=== PATIENT | female | born 1975 | race Caucasian/White ===

== ENCOUNTER 2017-04-07 17:02 | Emergency (ER) | payer OTHER ==
[2017-04-07] MEDS ORDERED: Sodium Chloride 0.9% 10 ML Syringe FLUSH PRN (17:38)
[2017-04-07] MEDS ORDERED: diphenhydrAMINE 50 MG/ML SDV IVPUSH ONE (17:39)
[2017-04-07] MEDS ORDERED: Prochlorperazine 10 MG/2 ML SDV IVPUSH ONE (17:39)
[2017-04-07] MEDS ORDERED: Ketorolac 30 MG/ML SDV IVPUSH ONE (17:39)
[2017-04-07] MEDS ORDERED: Sodium Chloride 0.9% 1,000 ML IV SCH (17:45)
--- NOTE | 2017-04-07 18:54 | CT ---
Head CT Technique: Multiple axial sections through the brain were obtained. Intravenous contrast was not utilized. Comparison: No previous intracranial imaging is available. Findings: Ventricles along with basal cisterns and sulci over convexities are within normal limits for the patient's age. No abnormal parenchymal densities are seen. No evidence of intracranial hemorrhage. No midline shift or mass effect is seen. Bone window settings were reviewed which shows no acute calvarial abnormality. Visualized sinuses are clear. Impression: 1. Nothing acute is identified on noncontrast head CT study. Diagnostic code #1
--- NOTE | 2017-04-07 19:27 | EDM.PDOC ---
ED HPI GENERAL MEDICAL PROBLEM - General Chief Complaint: Headache Stated Complaint: HEAD PAIN Time Seen by Provider: 04/07/17 17:24 Source of Information: Reports: Patient History Limitations: Reports: No Limitations - History of Present Illness INITIAL COMMENTS - FREE TEXT/NARRATIVE: The patient presents with a headache for a few days. She also had a fever a couple days ago and now a cough, congestion and runny nose. She has no numbness or weakness. She has no blurred or double vision. She has no abdominal pain, nausea or vomiting. She has a history of headache but not like this. Onset: Gradual Duration: Day(s): Location: Reports: Head Quality: Reports: Ache Severity: Severe Improves with: Reports: None Worsens with: Reports: None Associated Symptoms: Reports: Cough, Fever/Chills. Denies: Confusion, Chest Pain, Nausea/Vomiting, Shortness of Breath Headache Pain Score (Numeric/FACES): 10 - Related Data Allergies Allergy/AdvReac Type Severity Reaction Status Date / Time No Known Allergies Allergy Verified 04/07/17 17:21 Home Meds: Home Meds Codeine/Promethazine [Phenergan with Codeine] 5 - 10 ml PO Q6HR PRN #300 ml [Rx] Past Medical History - Past Health History Medical/Surgical History: Denies Medical/Surgical History Social & Family History - Tobacco Use Smoking Status *Q: Never Smoker ED ROS GENERAL - Review of Systems Review Of Systems: See Below Constitutional: Reports: Fever, Chills HEENT: Reports: Other (Congestion and runny nose) Respiratory: Reports: No Symptoms Cardiovascular: Reports: No Symptoms Endocrine: Reports: No Symptoms GI/Abdominal: Reports: No Symptoms : Reports: No Symptoms Musculoskeletal: Reports: Neck Pain Skin: Reports: No Symptoms Neurological: Reports: Headache - Physical Exam Exam: See Below Exam Limited By: No Limitations General Appearance: Alert, No Apparent Distress Eye Exam: Bilateral Eye: EOMI, PERRL Ears: Normal External Exam Nose: Normal Inspection Throat/Mouth: Normal Inspection Head Exam: Atraumatic, Normocephalic Neck: Normal Inspection Respiratory/Chest: No Respiratory Distress, Lungs Clear, Normal Breath Sounds Cardiovascular: Regular Rate, Rhythm, No Edema, No Murmur GI/Abdominal: Soft, Non-Tender, No Organomegaly, No Mass Neuro Exam (Abbreviated): Alert, Oriented, No Motor/Sensory Deficits Back Exam: Normal Inspection Extremities: Normal Inspection Course - Vital Signs Last Recorded V/S: Last Vital Signs Temp 98.2 F 04/07/17 17:22 Pulse 87 04/07/17 17:22 Resp 16 04/07/17 17:22 BP 119/84 04/07/17 17:22 Pulse Ox 98 04/07/17 17:22 - Orders/Labs/Meds Orders: Active Orders 24 hr Category Date Time Status Peripheral IV Care [RC] . DIRECTED Care 04/07/17 17:38 Active Chest 2V [CR] Stat Exams 04/07/17 17:38 Taken Sodium Chloride 0.9% [Normal Saline] 1,000 ml Med 04/07/17 17:45 Active IV ASDIRECTED Sodium Chloride 0.9% [Saline Flush] Med 04/07/17 17:38 Active 10 ml FLUSH ASDIRECTED PRN ED Antiemetic Medication Reflex [OM.PC] Stat Oth 04/07/17 17:38 Ordered Peripheral IV Insertion Adult [OM.PC] Stat Oth 04/07/17 17:38 Ordered Medication Orders Sodium Chloride (Normal Saline) 1,000 mls @ 125 mls/hr IV ASDIRECTED AUGUST Last Admin: 04/07/17 18:00 Dose: 125 mls/hr Sodium Chloride (Saline Flush) 10 ml FLUSH ASDIRECTED PRN PRN Reason: Keep Vein Open Last Admin: 04/07/17 18:02 Dose: 10 ml Labs: Laboratory Tests 04/07/17 04/07/17 Range/Units 17:00 17:00 WBC 4.30 (3.98-10.04) K/mm3 RBC 4.86 (3.98-5.22) M/mm3 Hgb 14.2 (11.2-15.7) gm/L Hct 42.6 (34.1-44.9) % MCV 87.7 (79.4-94.8) fl MCH 29.2 (25.6-32.2) pg MCHC 33.3 (32.2-35.5) g/dl RDW Std Deviation 44.5 (36.4-46.3) fL Plt Count 360 (182-369) K/mm3 MPV 8.9 L (9.4-12.3) fl Neut % (Auto) 48.4 (34.0-71.1) % Lymph % (Auto) 38.1 (19.3-51.7) % [place] % (Auto) 12.8 H (4.7-12.5) % Eos % (Auto) 0.2 L (0.7-5.8) Baso % (Auto) 0.5 (0.1-1.2) % Neut # (Auto) 2.08 (1.56-6.13) K/mm3 Lymph # (Auto) 1.64 (1.18-3.74) K/mm3 [place] # (Auto) 0.55 H (0.24-0.36) K/mm3 Eos # (Auto) 0.01 L (0.04-0.36) K/mm3 Baso # (Auto) 0.02 (0.01-0.08) K/mm3 Sodium 139 (136-145) mEq/L Potassium 3.8 (3.5-5.1) mEq/L Chloride 102 (98-107) mEq/L Carbon Dioxide 26 (21-32) mEq/L Anion Gap 14.8 (5-15) BUN 7 (7-18) mg/dL Creatinine 0.9 (0.55-1.02) mg/dL Est Cr Clr Drug Dosing 76.23 mL/min Estimated GFR (MDRD) > 60 (>60) mL/min BUN/Creatinine Ratio 7.8 L (14-18) Glucose 81 (74-106) mg/dL Calcium 9.3 (8.5-10.1) mg/dL Total Bilirubin 0.2 (0.2-1.0) mg/dL AST 38 H (15-37) U/L ALT 33 (14-59) U/L Alkaline Phosphatase 52 (46-116) U/L Total Protein 8.1 (6.4-8.2) g/dl Albumin 3.8 (3.4-5.0) g/dl Globulin 4.3 gm/dL Albumin/Globulin Ratio 0.9 L (1-2) Meds: Medications Generic Name Dose Route Start Last Admin Trade Name Freq PRN Reason Stop Dose Admin Sodium Chloride 1,000 mls @ 125 mls/hr 04/07/17 17:45 04/07/17 18:00 Normal Saline IV 125 mls/hr ASDIRECTED AUGUST Administration Sodium Chloride 10 ml 04/07/17 17:38 04/07/17 18:02 Saline Flush FLUSH 10 ml ASDIRECTED PRN Administration Keep Vein Open Discontinued Medications Generic Name Dose Route Start Last Admin Trade Name Luis PRN Reason Stop Dose Admin Diphenhydramine HCl 50 mg 04/07/17 17:39 04/07/17 18:05 Benadryl IVPUSH 04/07/17 17:40 50 mg ONETIME ONE Administration Ketorolac Tromethamine 30 mg 04/07/17 17:39 04/07/17 18:06 Toradol IVPUSH 04/07/17 17:40 30 mg ONETIME ONE Administration Prochlorperazine Edisylate 10 mg 04/07/17 17:39 04/07/17 18:03 Compazine IVPUSH 04/07/17 17:40 10 mg ONETIME ONE Administration - Re-Assessments/Exams Free Text/Narrative Re-Assessment/Exam: 04/07/17 19:22 I ordered an IV NS, labs, CT of her head, compazine 10mg IV, toradol 30mg IV, and benadryl 50mg IV. Her CT shows nothing acute. 04/07/17 19:27 Her CBC and CMP looks good. Her headache is gone. I will discharge her home with something for her cough. Departure - Departure Time of Disposition: 19:30 Disposition: Home, Self-Care 01 Condition: Good Clinical Impression: Viral upper respiratory infection Headache Qualifiers: Headache type: unspecified Headache chronicity pattern: acute headache Intractability: not intractable Qualified Code(s): R51 - Headache - Discharge Information Prescriptions: Codeine/Promethazine [Phenergan with Codeine] 5 - 10 ml PO Q6HR PRN #300 ml PRN Reason: Cough Referrals: Gianna Patel, LEGAL ARCHIVIST [Primary Care Provider] - 1 Week Additional Instructions: Take the phenergan with codeine for the cough. Go home to a dark quiet room and rest. Please return if you are worse. - My Orders Last 24 Hours: My Active Orders 04/07/17 17:38 Peripheral IV Care [RC] . DIRECTED Chest 2V [CR] Stat Sodium Chloride 0.9% [Saline Flush] 10 ml FLUSH ASDIRECTED PRN ED Antiemetic Medication Reflex [OM.PC] Stat Peripheral IV Insertion Adult [OM.PC] Stat 04/07/17 17:45 Sodium Chloride 0.9% [Normal Saline] 1,000 ml IV ASDIRECTED - Assessment/Plan Last 24 Hours: My Active Orders 04/07/17 17:38 Peripheral IV Care [RC] . DIRECTED Chest 2V [CR] Stat Sodium Chloride 0.9% [Saline Flush] 10 ml FLUSH ASDIRECTED PRN ED Antiemetic Medication Reflex [OM.PC] Stat Peripheral IV Insertion Adult [OM.PC] Stat 04/07/17 17:45 Sodium Chloride 0.9% [Normal Saline] 1,000 ml IV ASDIRECTED
--- NOTE | 2017-04-08 10:08 | CR ---
Chest: Two views of the chest were obtained. Comparison: No prior study. Heart size and mediastinum are within normal limits. Lungs are clear. Mild scoliosis is present within the spine. Impression: 1. Incidental findings. Nothing acute is identified on two-view chest x-ray. Diagnostic code #1
== END 2017-04-07 19:40 | disposition home or self-care (01) ==
LOC: EDBD 17:02 → JD.ED 17:02
DX: J06.9 Acute upper respiratory infection, unspecified (principal); R51 Headache
CPT/HCPCS: 36415; 70450; 71020; 80053; 85025; 96361; 96374; 96375; 99284; J0780; J1200; J1885; J7040; J7050

== ENCOUNTER 2023-04-05 18:36 | Emergency (ER) | payer BC, OTHER | END 2023-04-05 22:19 | disposition home or self-care (01) | LOC: JD.ED 18:36 | DX: I83.92 Asymptomatic varicose veins of left lower extremity (principal) | CPT/HCPCS: 93971-26-LT; 93971-LT; 99282; 99283 ==

== ENCOUNTER 2024-06-24 09:09 | Emergency (ER) | payer OTHER ==
[2024-06-24] MEDS ORDERED: Sodium Chloride 0.9% 10 ML Syringe FLUSH PRN (09:14)
[2024-06-24 09:28] LABS: BASOPHILS PERCENT AUTO 0.3 % (0.0-1.0); EOSINOPHILS ABSOLUTE AUTO 0.1 K/mm3 (0.0-0.4); EOSINOPHILS PERCENT AUTO 0.8 % (0.0-6.0); HEMATOCRIT 40.3 % (37.0-47.0); HEMOGLOBIN 13.3 gm/dl (12.0-16.0); IMMATURE GRAN ABSOLUTE AUTO 0.04 K/mm3 (0.00-0.05); IMMATURE GRAN PERCENT AUTO 0.4 % (0.0-0.4); LYMPHOCYTES ABSOLUTE AUTO 3.1 K/mm3 (1.0-4.8); LYMPHOCYTES PERCENT AUTO 34.3 % (24.0-44.0); MEAN CORPUSCULAR HEMOGLOBIN 27.6 pg (28.0-32.0); MEAN CORPUSCULAR VOLUME 83.6 fl (83.0-99.0); MEAN PLATELET VOLUME 8.4 fl (9.4-12.3); MONOCYTES ABSOLUTE AUTO 0.6 K/mm3 (0.0-0.8); MONOCYTES PERCENT AUTO 6.7 % (0.0-8.0); NEUTROPHILS ABSOLUTE AUTO 5.2 K/mm3 (1.8-7.7); NEUTROPHILS PERCENT AUTO 57.5 % (41.0-71.0); PLATELET COUNT,PLT 438 K/mm3 (150-400); RED BLOOD CELL COUNT 4.82 M/mm3 (4.10-5.30); WHITE BLOOD CELL COUNT,WBC 9.09 K/mm3 (3.9-11.3)
[2024-06-24 09:50] LABS: A/G RATIO 0.9 (1-2); ALANINE AMINOTRANSFERASE,ALT 24 U/L (14-59); ALBUMIN 3.4 g/dl (3.4-5.0); ALKALINE PHOSPHATASE 54 U/L (46-116); ANION GAP 13.8 (5-15); ASPARTATE AMNIOTRANSFERASE,AST 18 U/L (15-37); BILIRUBIN TOTAL 0.4 mg/dL (0.2-1.0); BLOOD UREA NITROGEN,BUN 11 mg/dL (7-18); BUN/CREATININE RATIO 12.2 (14-18); CALCIUM 9.1 mg/dL (8.5-10.1); CARBON DIOXIDE,CO2 26 mEq/L (21-32); CHLORIDE,CL 102 mEq/L (98-107); CREATININE 0.9 mg/dL (0.55-1.02); ESTIMATED GFR 78 mL/min (>60); GLUCOSE RANDOM 129 mg/dL (70-99); LIPASE 44 U/L (16-77); POTASSIUM,K 3.8 mEq/L (3.5-5.1); PROTEIN TOTAL,TP 7.3 g/dl (6.4-8.2); SODIUM,NA 138 mEq/L (136-145)
[2024-06-24] MEDS ORDERED: Naloxone 0.4 MG/ML SDV IVPUSH PRN (11:46)
[2024-06-24 11:51] LABS: APPEARANCE,URINE CLEAR (Clear); BILIRUBIN,URINE NEGATIVE (Negative); COLOR,URINE YELLOW (Yellow); GLUCOSE,URINE NEGATIVE (Negative); KETONES,URINE NEGATIVE (Negative); LEUKOCYTE ESTERASE,URINE NEGATIVE (Negative); NITRITE,URINE NEGATIVE (Negative); OCCULT BLOOD,URINE NEGATIVE (Negative); PH,URINE 6.5 (5.0-8.0); PROTEIN,URINE TRACE (Negative); UROBILINOGEN,URINE 0.2 (0.2-1.0)
[2024-06-24] MEDS: HYDROmorphone 0.5 MG/0.5 ML Syringe IVPUSH ONE (11:52)
[2024-06-24] MEDS: Ondansetron 4 MG/2 ML SDV IVPUSH ONE (11:52)
[2024-06-24 12:00] LABS: BACTERIA,URINE FEW /hpf (FEW); EPITHELIAL CELLS,URINE 0-5 /hpf (0-5); MUCUS,URINE NOT SEEN /hpf (FEW); RBC,URINE 0-5 /hpf (0-5); WBC,URINE 0-5 /hpf (0-5)
[2024-06-24 12:01] LABS: BARBITURATE SCREEN,URINE NEGATIVE (CUTOFF=200); BENZODIAZEPINES SCREEN,URINE NEGATIVE (CUTOFF=150); BUPRENORPHINE SCREEN,URINE NEGATIVE (CUTOFF=10); METHADONE SCREEN, URINE NEGATIVE (CUTOFF=200); METHAMPHETAMINES SCREEN, URINE NEGATIVE (CUTOFF=500); OXYCODONE SCREEN,URINE NEGATIVE (CUT0FF=100); THC SCREEN,URINE 20 NG/ML NEGATIVE (CUTOFF=50)
[2024-06-24 12:02] LABS: AMPHETAMINES SCREEN, URINE NEGATIVE (CUTOFF=500)
== END 2024-06-24 14:08 | disposition home or self-care (01) ==
LOC: JD.ED 09:09
DX: S82.301A Unspecified fracture of lower end of right tibia, initial encounter for closed fracture (principal); S63.502A Unspecified sprain of left wrist, initial encounter; S20.01XA Contusion of right breast, initial encounter; S20.212A Contusion of left front wall of thorax, initial encounter; S30.1XXA Contusion of abdominal wall, initial encounter; K86.89 Other specified diseases of pancreas; Z79.899 Other long term (current) drug therapy; V49.49XA Driver injured in collision with other motor vehicles in traffic accident, initial encounter
CPT/HCPCS: 36415; 70450; 70450-26; 71045; 71045-26; 71260; 71260-26; 72125; 72125-26; 73110-26-LT; 73110-LT; 73610-26-RT; 73610-RT; 74177; 74177-26; 80053; 80306; 80307; 81001; 83690; 85025; 93005; 96374; 96375; 99285-25; J2405